=== PATIENT | female | born 1985 | race Caucasian/White ===

== ENCOUNTER → 2016-12-09 | Outpatient (REF) ==
--- NOTE | 2016-12-09 15:52 | REP ---
LUMBOSACRAL SPINE: AP and lateral views of the lumbosacral spine are performed. There is no compression fracture or malalignment with normal lumbar lordosis and no evidence of spondylolysis or spondylolisthesis. There is spurring at L5 and S1 with mild to moderate disc space narrowing and subchondral sclerosis at L5-S1. There is also sclerosis at the posterior facet joints at that level. The posterior elements are intact. IMPRESSION: Mild to moderate degenerative changes, L5-S1. Signed by Daniel Calvin MD 12/10/2016 05:34 P
== END ==
LOC: M SMT 13:22
PROVIDERS: ATTEND Internal Medicine
DX: Z02.71 Encounter for disability determination (principal)